=== PATIENT | female | born 1980 | race Caucasian/White ===

== ENCOUNTER → 2017-08-16 | Outpatient (REF) | payer BC | LOC: ZZSENDIN 15:23 | PROVIDERS: ATTEND Physician Assistant | DX: R05 Cough (principal) | CPT/HCPCS: 85379 ==

== ENCOUNTER → 2017-10-18 | Outpatient (CLI) | payer BC ==
[2017-10-18 14:48] LABS: PLATELET COUNT, AUTOMATED 276 K/uL (150-450)
== END ==
LOC: LAB 14:09
PROVIDERS: ATTEND Obstetrics & Gynecology
DX: Z3A.01 Less than 8 weeks gestation of pregnancy (principal)
CPT/HCPCS: 36415; 81001; 82040; 82247; 82310; 82374; 82435; 82565; 82947; 84075; 84132; 84155; 84295; 84450; 84460; 84520; 85025; 86592; 86762; 86850; 86900; 86901; 87088; 87340

== ENCOUNTER 2018-04-16 14:20 | Outpatient (CLI) | payer BC ==
[~2018-04-16] VITALS: Ht 177.8 cm; Wt 88.9 kg
[~2018-04-16 14:20] MED LIST: DIPH-741 PO; PREN-127 PO
[2018-04-16 14:45] VITALS: BP 132/79; Ht 177.8 cm; Wt 88.9 kg
--- NOTE | 2018-04-16 15:54 | History & Physical ---
History of Present Illness Chief Complaint Headache and elevated BP History of Present Illness 37-year-old at 34w4d presents with a severe headache in . Her blood pressure was elevated initially at clinic. Labs are normal, with creatinine 0.9. Her Pr:Cr = 0.4. She has been sent to labor and delivery for monitoring and further preeclampsia evaluation. She has a history of headaches outside of and this is similar to her normal headaches. She tried Tylenol, but this did not help. She did take 2 Fioricet prior to coming to clinic. She is very stressed right now, as she just lost her dog. Her has been out of town, and she has been sad and not sleeping well. Her is coming back to town today. Her is otherwise complicated by AMA and complete posterior previa. History Allergies: Coded Allergies: cat dander (Unverified Allergy, Mild, 03/03/18) Uncoded Allergies: seasonal allergies (Allergy, Mild, 02/24/18) atopic dermatitis shellfish (Adverse Reaction, Mild, 03/03/18) Family History: FH: diabetes mellitus Paternal Grandparent FH: hypertension Maternal Grandparent Paternal Grandparent FH: stroke Maternal Grandparent FHx: heart disease Maternal Grandparent Paternal Grandparent Med Rec Home Meds Reported Medications Diphenhydramine Hcl (BENADRYL ALLERGY) 25 Mg Tablet, 25 MG PO Q6-8H, TAB 02/24/18 Vits W-Ca,Fe,Fa(<1MG) ( VITAMINS) 1 Each Tablet, 1 EACH PO DAILY, TAB 02/24/18 Review of Systems Constitutional: No Fever Neurological: No Dizziness Eyes: Vision Change ENT: No Hearing Loss Cardiovascular: No Chest Pain Respiratory: No Shortness of Breath Gastrointestinal: No Nausea, No Vomiting, No Diarrhea Genitourinary: No Dysuria Musculoskeletal: No Pain Psychiatric: No Depression, No Anxiety Exam General Exam Vital Signs Vital Signs Date Time Temp Pulse Resp B/P (MAP) Pulse Ox O2 Delivery O2 Flow Rate FiO2 04/16/18 14:45 98.3 88 18 132/79 (96) 96 Room Air General Apperance: Alert/Awake/No Acute Distress Neuro: No Gross deficits Eyes: Normal Extraocular Movement & Vison Cardiovascular: Regular Rate and Rhythm Respiratory: No Respiratory Distress, Clear to Auscultation Abdomen: Gravid - Non-Tender Musculoskeletal: No Weakness/Pain Extremities: No Cyanosis,Clubbing or Edema Integumentary: Skin Intact without Lesions or Rash Psychological: Alert & Oriented X3, Appropriate Mood & Affect Uterine Contractions(Q min): 0 Fetus FHT Category: I Assessment and Plan Problems: (1) Headache in Assessment & Plan: 37-year-old at 34w4d presents with a severe headache in . Her blood pressure is elevated initially. Labs are normal, with creatinine 0.9. Her Pr:Cr = 0.4. She has been sent to labor and delivery for monitoring and further preeclampsia evaluation. Her initial BP here is normal. She is currently sleeping and will re-evaluate when she wakes up. (2) Elevated blood pressure affecting in third trimester, antepartum Problem Qualifiers (1) Headache in : Trimester: third trimester Qualified Codes: O26.893 - Other specified related conditions, third trimester; R51 - Headache ROSY STEPHENS MD Apr 16, 2018 15:54
[2018-04-16] MEDS ORDERED: BUTA1CAP6 PO (16:55)
== END 2018-04-16 17:10 | disposition home or self-care (01) ==
LOC: OB 14:20 → UNDOADMIN 14:20 → L&D 14:20 → UNDODISIN 17:10 → EDSTATUS 04-17 14:36
PROVIDERS: ATTEND Student in an Organized Health Care Education/Training Program
DX: O16.3 Unspecified maternal hypertension, third trimester (principal); Z3A.34 34 weeks gestation of pregnancy
CPT/HCPCS: 99213

== ENCOUNTER → 2018-04-24 | Outpatient (CLI) | payer BC ==
[2018-04-16 14:45] VITALS: BMI 28.1
[~2018-04-24] MED LIST changes: +BET6I IM ONLY; +BUTA1CAP6 PO
== END ==
LOC: LAB 11:34
PROVIDERS: ATTEND Obstetrics & Gynecology
DX: Z34.93 Encounter for supervision of normal pregnancy, unspecified, third trimester (principal)
CPT/HCPCS: 87081